=== PATIENT | male | born 1935 | race Caucasian/White ===

== ENCOUNTER 2020-10-16 17:55 | Observation (INO) ==
[2020-10-16] MEDS ORDERED: *HR* Heparin 5,000 UNIT/ML VIAL IVP ONE (20:54)
[2020-10-16] MEDS ORDERED: *HR* Heparin 5,000 UNIT/ML VIAL IVP PRN ×2 (20:54)
[2020-10-16] MEDS ORDERED: Naloxone 0.4 MG/ML INJ IVP PRN (20:55)
[2020-10-16] MEDS ORDERED: Heparin 25,000UNIT/250ML 1/2NS 25,000 UNIT/250 ML IV.SOLN IVC SCH (21:00)
[2020-10-16 21:41] LABS: Heparin anti-factor XA UFH 0.62 IU/mL (0.30-0.70)
[2020-10-16 21:42] LABS: INR 1.1; Prothrombin Time 12.5 Seconds (9.4-12.1)
[2020-10-16] MEDS ORDERED: Perflutren Lipid Microsphere 1.3 ML in 0.9 % Sodium Chloride 8.7 ML IVP PRN (22:12)
[2020-10-16 22:47] LABS: Hematocrit 35.8 % (37.5-50.1); Hemoglobin 12.9 g/dL (12.9-16.9); Mean Corpuscular Hemoglobin 41.5 pg (28.0-33.3); Mean Corpuscular Volume 115.1 fL (83.0-100.0); Mean Platelet Volume 10.5 fL (9.4-12.4); Platelet Count 140 K/mcL (140-400); Red Blood Count 3.11 M/mcL (4.19-5.50); Red Cell Distribution Width 13.9 % (11.5-14.5); White Blood Count 11.2 K/mcL (4.3-11.1)
[2020-10-17] MEDS ORDERED: *HR* Metoprolol 5 MG/5 ML VIAL IVP SCH
[2020-10-17 04:48] LABS: Basophils # 0.1 K/mcL (0.0-0.2); Basophils % 0.7 %; Eosinophils # 0.5 K/mcL (0.0-0.6); Hematocrit 35.2 % (37.5-50.1); Hemoglobin 11.9 g/dL (12.9-16.9); Immature Granulocytes % 0.8 % (0-4); Lymphocytes # 1.8 K/mcL (0.6-4.6); Lymphocytes % 21.2 %; Mean Corpuscular HGB Conc 33.8 g/dL (31.6-35.5); Mean Corpuscular Hemoglobin 39.9 pg (28.0-33.3); Mean Corpuscular Volume 118.1 fL (83.0-100.0); Monocytes # 0.6 K/mcL (0.0-1.3); Monocytes % 7.3 %; Neutrophils # 5.3 K/mcL (1.6-8.9); Platelet Count 128 K/mcL (140-400); Red Blood Count 2.98 M/mcL (4.19-5.50); Red Cell Distribution Width 14.2 % (11.5-14.5); White Blood Count 8.3 K/mcL (4.3-11.1)
[2020-10-17 05:06] LABS: Alanine Aminotransferase 10 Units/L (7-52); Albumin 3.4 g/dL (3.5-5.7); Albumin/Globulin Ratio 1.6 (1.1-2.2); Alkaline Phosphatase 101 Units/L (34-104); Aspartate Amino Transferase 17 Units/L (13-39); BUN/Creatinine Ratio 19 (6-26); Bilirubin,Total 0.6 mg/dL (0.3-1.0); Blood Urea Nitrogen 21 mg/dL (8-23); Calcium 8.5 mg/dL (8.6-10.3); Carbon Dioxide 26 mEq/L (23-29); Chloride 109 mEq/L (98-107); Chol/HDL Ratio 2.8 (0-4.9); Cholesterol 116 mg/dL (< 200); Globulin 2.1 g/dL (2.4-3.5); Glucose 97 mg/dL (70-105); HDL Cholesterol 41 mg/dL (40-59); LDL Cholesterol,Calculated 57 mg/dL (< 100); Osmolality,Calculated 293 (280-300); Potassium 4.1 mEq/L (3.5-5.1); Sodium 140 mEq/L (136-145); Total Protein 5.5 g/dL (6.4-8.9); Triglycerides 92 mg/dL (< 150); eGFR For African Americans > 60 (> 60); eGFR For Non-African Americans > 60 (> 60)
[2020-10-17 05:08] LABS: BUN/Creatinine Ratio 19 (6-26); Blood Urea Nitrogen 22 mg/dL (8-23); Calcium 8.5 mg/dL (8.6-10.3); Carbon Dioxide 26 mEq/L (23-29); Chloride 109 mEq/L (98-107); Glucose 99 mg/dL (70-105); Magnesium 1.8 mg/dL (1.6-2.6); Osmolality,Calculated 293 (280-300); Phosphorous 4.1 mg/dL (2.7-4.5); Sodium 140 mEq/L (136-145); eGFR For African Americans > 60 (> 60); eGFR For Non-African Americans > 60 (> 60)
[2020-10-17 05:10] LABS: Troponin I 1.16 ng/mL (< 0.04)
[2020-10-17 05:35] LABS: Anisocytosis 1+ (Not Present); Macrocytosis Present (Not Present); Platelet Estimate Normal (Normal)
[2020-10-17 06:09] LABS: Estimated Average Glucose 120 mg/dl; Hemoglobin A1C 5.8 %
[2020-10-17] MEDS ORDERED: Aspirin 81 MG TAB.CHEW PO SCH (09:00)
[2020-10-17 11:14] VITALS: BP 188/68
[2020-10-17] MEDS ORDERED: Metoprolol XL (24 HR) Succ 25 MG TAB.ER.24H PO SCH (12:00)
[2020-10-18] MEDS ORDERED: amLODIPine 5 MG TABLET PO SCH (09:00)
[2020-10-18] MEDS ORDERED: ISOSORBIDE DINITRATE 30 MG PO SCH (09:00)
== END 2020-10-17 14:40 | disposition left against medical advice (07) ==
LOC: 3BNU → SUATTDRO 20:15
PROVIDERS: ADMIT Internal Medicine; ATTEND Registered Nurse

== ENCOUNTER 2021-05-30 14:06 | Inpatient (IN) ==
[2021-05-30] MEDS ORDERED: MOM Conc 10 ML UD.LIQ PO PRN (15:32)
[2021-05-30] MEDS ORDERED: *HR* Promethazine 25 MG/ML VIAL IM PRN (15:32)
[2021-05-30] MEDS ORDERED: Naloxone 0.4 MG/ML INJ IVP PRN (15:32)
[2021-05-30] MEDS ORDERED: Acetaminophen 325 MG TABLET PO PRN (15:32)
[2021-05-30] MEDS ORDERED: Melatonin 3 MG TABLET PO PRN (15:32)
[2021-05-30 16:37] LABS: Basophils % 0.1 %; Eosinophils % 0.1 %; Hematocrit 25.5 % (37.5-50.1); Immature Granulocytes % 0.6 % (0-4); Lymphocytes # 1.5 K/mcL (0.6-4.6); Lymphocytes % 10.5 %; Mean Corpuscular HGB Conc 35.3 g/dL (31.6-35.5); Mean Corpuscular Hemoglobin 47.4 pg (28.0-33.3); Mean Corpuscular Volume 134.2 fL (83.0-100.0); Mean Platelet Volume 12.3 fL (9.4-12.4); Monocytes # 0.7 K/mcL (0.0-1.3); Monocytes % 4.6 %; Neutrophils # 12.2 K/mcL (1.6-8.9); Platelet Count 110 K/mcL (140-400); Segmented Neutrophils % 84.1 %; White Blood Count 14.5 K/mcL (4.3-11.1)
[2021-05-30 17:03] LABS: Calcium 7.8 mg/dL (8.6-10.3); Magnesium 1.6 mg/dL (1.6-2.6); Phosphorous 4.1 mg/dL (2.7-4.5); Potassium 4.2 mEq/L (3.5-5.1); Troponin I 1.5 ng/mL (< 0.04)
[2021-05-30 17:15] LABS: Anisocytosis 1+ (Not Present); Macrocytosis Present (Not Present); Polychromasia 1+ (Not Present)
[2021-05-30 17:16] LABS: Platelet Estimate Decreased (Normal)
[2021-05-30] MEDS ORDERED: Perflutren Lipid Microsphere 1.3 ML in 0.9 % Sodium Chloride 8.7 ML IVP PRN (17:31)
[2021-05-30] MEDS ORDERED: *HR* Heparin 5,000 UNIT/ML VIAL IVP PRN ×2 (17:34)
[2021-05-30 18:43] LABS: Estimated Average Glucose 105 mg/dl; Hemoglobin A1C 5.3 %
[2021-05-30 19:10] LABS: Vitamin B12 < 50 pg/mL (250-1100)
[2021-05-30 19:38] LABS: Hepatitis B Surface Antigen Nonreactive (Nonreactive)
[2021-05-30] MEDS: Heparin 25,000UNIT/250ML 1/2NS 25,000 UNIT/250 ML IV.SOLN IVC SCH (19:44)
[2021-05-30] MEDS: 0.9 % Sodium Chloride 1,000 ML IVC SCH (19:45)
[2021-05-30 19:53] LABS: Hepatitis B Core IgM Nonreactive (Nonreactive)
[2021-05-30 20:07] LABS: Hepatitis C Virus Antibody Nonreactive (Nonreactive)
[2021-05-30 20:08] LABS: Hepatitis A Antibody IgM Nonreactive (Nonreactive)
[2021-05-30 21:30] LABS: VBG Ionized Calcium 1.09 mmol/L (1.15-1.35)
[2021-05-30 22:09] LABS: Bilirubin,Urine Negative (Negative); Blood,Urine Negative (Negative); Clarity,Urine Clear (Clear); Color,Urine Yellow (Yellow); Glucose,Urine (UA) Normal (Normal); Ketones,Urine Trace mg/dL (Negative); Leukocyte Esterase,Urine Negative (Negative); Mucus,Urine Few per lpf (None-Few); Nitrite,Urine Negative (Negative); Protein,Urine 30 mg/dL (Neg-Trace); RBC,Urine 0-3 per hpf (0-3); Specific Gravity,Urine > 1.030 (1.010-1.025); Squamous Epithelial Cell,Urine Few per hpf (None-Few); WBC,Urine 0-3 per hpf (0-3)
[2021-05-30 22:17] LABS: Sodium, Urine 92.1 mEq/L
[2021-05-31 05:18] LABS: Mean Platelet Volume 11.8 fL (9.4-12.4)
[2021-05-31 05:20] LABS: Hematocrit 24.2 % (37.5-50.1); Hemoglobin 8.3 g/dL (12.9-16.9); Immature Platelets 8.1 % (1.1-6.1); Mean Corpuscular HGB Conc 34.3 g/dL (31.6-35.5); Mean Corpuscular Hemoglobin 46.1 pg (28.0-33.3); Mean Corpuscular Volume 134.4 fL (83.0-100.0); Red Blood Count 1.8 M/mcL (4.19-5.50); Red Cell Distribution Width 13.9 % (11.5-14.5); White Blood Count 8.5 K/mcL (4.3-11.1)
[2021-05-31 05:22] LABS: Heparin anti-factor XA UFH 0.45 IU/mL (0.30-0.70); INR 1.3; Prothrombin Time 14.4 Seconds (9.4-12.1)
[2021-05-31 05:24] LABS: Activated Partial Thrombo Time 75.2 Seconds (26.0-36.0)
[2021-05-31 05:40] LABS: Calcium 7.7 mg/dL (8.6-10.3); Chol/HDL Ratio 2.1 (0-4.9); Potassium 3.9 mEq/L (3.5-5.1)
[2021-05-31] MEDS: Aspirin 81 MG TAB.CHEW PO SCH (08:00)
[2021-05-31] MEDS: 0.9 % Sodium Chloride 1,000 ML IVC SCH (14:04)
[2021-05-31] MEDS: Isosorbide MONOnitrate (24 HR) 30 MG TAB.ER.24H PO SCH (16:47)
[2021-05-31] MEDS: Heparin 25,000UNIT/250ML 1/2NS 25,000 UNIT/250 ML IV.SOLN IVC SCH (21:49)
[2021-06-01 05:34] LABS: Hematocrit 22.3 % (37.5-50.1); Hemoglobin 8.1 g/dL (12.9-16.9); Mean Corpuscular HGB Conc 36.3 g/dL (31.6-35.5); Mean Corpuscular Hemoglobin 47.9 pg (28.0-33.3); Mean Platelet Volume 12.1 fL (9.4-12.4); Platelet Count 102 K/mcL (140-400); Red Blood Count 1.69 M/mcL (4.19-5.50); Red Cell Distribution Width 13.6 % (11.5-14.5)
[2021-06-01 05:51] LABS: BUN/Creatinine Ratio 25 (6-26); Blood Urea Nitrogen 33 mg/dL (8-23); Calcium 7.9 mg/dL (8.6-10.3); Carbon Dioxide 23 mEq/L (23-29); Chloride 110 mEq/L (98-107); Glucose 88 mg/dL (70-105); Heparin anti-factor XA UFH 0.25 IU/mL (0.30-0.70); INR 1.2; Osmolality,Calculated 293 (280-300); Potassium 3.9 mEq/L (3.5-5.1); Prothrombin Time 13.1 Seconds (9.4-12.1); Sodium 138 mEq/L (136-145); eGFR For African Americans > 60 (> 60); eGFR For Non-African Americans 51 (> 60)
[2021-06-01 05:54] LABS: Activated Partial Thrombo Time 50.7 Seconds (26.0-36.0)
[2021-06-01] MEDS: Aspirin 81 MG TAB.CHEW PO SCH (09:43)
[2021-06-01] MEDS: 0.9 % Sodium Chloride 1,000 ML IVC SCH (09:44)
[2021-06-01] MEDS: Isosorbide MONOnitrate (24 HR) 30 MG TAB.ER.24H PO SCH (09:44)
[2021-06-01 10:41] VITALS: BP 151/63; PULSE 83; TEMP 98.3; O2SAT 97
== END 2021-06-01 15:10 | disposition home health service (06) | DRG 281 ==
LOC: 3NENU → SUATTDRO 15:39
PROVIDERS: ADMIT Internal Medicine; ATTEND Internal Medicine